=== PATIENT | female | born 1955 | race Asian ===

== ENCOUNTER 2016-10-16 18:05 | Emergency (ER) | payer OTHER ==
[2016-10-16] MEDS ORDERED: MORPHINE SULFATE 4 MG/ML SYRINGE ONE (18:46)
[2016-10-16] MEDS ORDERED: SODIUM CHLORIDE 0.9% 1,000 ML ONE (18:46)
[2016-10-16] MEDS ORDERED: ONDANSETRON 4 MG ODT TAB ONE (18:46)
[2016-10-16 18:54] LABS: URINE BILIRUBIN NEGATIVE (NEGATIVE); URINE BLOOD NEGATIVE (NEGATIVE); URINE GLUCOSE (UA) 3+ (NEGATIVE); URINE LEUKOCYTE ESTERASE NEGATIVE (NEGATIVE); URINE NITRITE NEGATIVE (NEGATIVE); URINE PROTEIN 2+ (NEGATIVE); URINE UROBILINOGEN NORMAL (0-1 mg/dl)
[2016-10-16 18:55] LABS: URINE APPEARANCE CLEAR; URINE COLOR YELLOW
[2016-10-16 18:56] LABS: ABSOLUTE NEUTROPHIL COUNT 8.2 K/mm3 (1.8-7.7); BASO # 0.1 K/mm3 (0.0-0.2); BASO % 0.4 % (0.2-1.0); EOS # 0.2 (0.0-0.5); EOS % 1.6 % (0.9-2.9); HEMATOCRIT 45.3 % (37.0-47.0); HEMOGLOBIN 14.9 gm/l (12.0-16.0); IMM NEUT # 0.1 K/mm3 (0-0.2); IMM NEUT% 0.5 % (0-1); LYMPH # 3.4 (1.0-4.8); LYMPH % 27.1 % (15-45); MEAN CELL VOLUME 84.5 fl (81.0-99.0); MEAN CORPUSCULAR HEMOGLOBIN 27.8 pg (27.0-31.0); MEAN CORPUSCULAR HGB CONC 32.9 g/dl (33.0-37.0); MEAN PLATELET VOLUME 11.1 fl (7.4-10.4); MONO # 0.6 (0.0-0.8); MONO % 4.7 % (4-12); NEUT % 65.7 % (43-75); PLATELET COUNT 234 K/mm3 (130-400); RED CELL DISTRIBUTION WIDTH 12.3 % (11.5-14.5)
[2016-10-16 19:13] LABS: ALB/GLOB RATIO 1.1 (>1.0); ALBUMIN 3.6 gm/dL (3.5-5.7); CALCIUM 8.8 mg/dL (8.6-10.3)
[2016-10-16 19:14] LABS: URINE WBC 0-1 /hpf
[2016-10-16 19:15] LABS: URINE BACTERIA RARE; URINE RBC 0-1 /hpf
--- NOTE | 2016-10-17 06:19 | US ---
EXAMINATION: Limited gallbladder ultrasound examination was performed. CLINICAL INDICATION: Right upper quadrant pain. COMPARISON: None FINDINGS: Gallbladder: Completely filled with calculi versus large gallstone. Cholelithiasis: Extensive Gallbladder wall thickness: 7 millimeters. Pericholecystic fluid: None appreciated Common bile duct:Not dilated and measures 7 millimeters. Sonographic Michelle's sign: None elicited IMPRESSION: Extensive cholelithiasis. There is a thickened gallbladder wall up to 7 mm. Findings may reflect chronic cholecystitis change. Common duct diameter is at the upper limits of normal. Findings were communicated by [facility] to the emergency department at: 2007 hours 10/16/2016
== END 2016-10-16 20:47 | disposition home or self-care (01) ==
LOC: ED 18:05
DX: K80.20 Calculus of gallbladder without cholecystitis without obstruction (principal); E11.9 Type 2 diabetes mellitus without complications; Z79.84 Long term (current) use of oral hypoglycemic drugs
CPT/HCPCS: 83690; 85025; 80053; 81001; 76705; 99284; 96374; 96361; 99283; J2270; J7030; A9270